=== PATIENT | female | born 1970 | race Caucasian/White ===

== ENCOUNTER 2017-11-06 15:50 | Emergency (ER) | payer OTHER ==
[~2017-11-06 15:50] MED LIST: PRED-1 PO; ROBITUSSIN; VALS1TAB96 PO
[2017-11-06 15:57] VITALS: BP 140/94
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
== END 2017-11-06 16:14 | disposition home or self-care (01) ==
LOC: ER 15:55
DX: S83.91XA Sprain of unspecified site of right knee, initial encounter (principal); Y93.55 Activity, bike riding; V18.0XXA Pedal cycle driver injured in noncollision transport accident in nontraffic accident, initial encounter
CPT/HCPCS: 99283; L1830

== ENCOUNTER 2018-05-11 19:10 | Emergency (ER) | payer OTHER ==
[2018-05-11 19:17] VITALS: BP 153/103
[2018-05-11] MEDS ORDERED: HYDROCHLOROTHIAZIDE 25 MG TAB PO ONE (19:55)
--- NOTE | 2018-05-11 19:55 | ER Report ---
History and Physical Time Seen By MD: 19:50 Hx. of Stated Complaint: PT HERE FOR HIGH BP. SHE REPORTS LAST TAKING LOSARTAN 5 DAYS AGO DUE TO BEING OUT OF IT. HPI/ROS CHIEF COMPLAINT: Elevated blood pressure HISTORY OF PRESENT ILLNESS: Patient ran out of her Olmesartan 5 days ago and has since been concerned about elevated blood pressure. She has been checking her blood pressure daily and noticed that it has been elevating significantly. However, she has not had concurrent symptoms. Today at home her blood pressure was noted to be 200/120, however she does note that the cuff may not be sized right in here notes that her blood pressure was in the 150s. She denies headache, chest pain, shortness of breath, edema, change in urination, or any other concerning symptoms. She does note that she has a mild frontal sinus headache but does not feel like this has been affected at all by change in blood pressure. Patient has a plan to call her primary doctor tomorrow but is not sure when she can get in is very concerned about her elevated blood pressure. Her aolmesartan has been recalled so she is looking for guidance as to what to do at this point. REVIEW OF SYSTEMS: Constitutional: No fever, no chills. Eyes: no blurred vision, diplopia ENT: No sore throat. Cardiovascular: No chest pain, no palpitations. Respiratory: No cough, no shortness of breath. Gastrointestinal: No abdominal pain, no vomiting. Genitourinary: no change in urination Musculoskeletal: No back pain. Skin: No rashes. Neurological: mild frontal rodriguez as above Remainder of the 14 system rev: Yes Allergies: Coded Allergies: Penicillins (Verified Allergy, Mild, HIVES, 05/11/18) cephalexin (Verified Allergy, Mild, RASH, 05/11/18) erythromycin base (Verified Allergy, Mild, RASH, 05/11/18) Home Meds Active Scripts Hydrochlorothiazide (HYDROCHLOROTHIAZIDE) 25 Mg Tablet, 0.5 TAB PO QDAY for 14 Days, #14 TAB Prov:SEBASTIAN SPANN MD 05/11/18 Reported Medications Valsartan/Hydrochlorothiazide (Diovan Hct 160-12.5 Mg Tab) 1 Tab Tablet, 1 TAB PO QDAY, 0 Refills 09/29/10 Hx Smoking: No Hx Substance Use Disorder: No Constitutional Vital Sign - Last 24 Hours 05/11/18 19:17 Temp 98.5 Pulse 99 Resp 14 B/P (MAP) 153/103 Pulse Ox 96 O2 Delivery Room Air Physical Exam General Appearance: The patient is alert, has no immediate need for airway protection and no signs of toxicity. Eyes: Pupils equal and round no pallor or injection. ENT, Mouth: Mucous membranes are moist. Respiratory: There are no retractions, lungs are clear to auscultation. Cardiovascular: Regular rate and rhythm. no m/r/g Gastrointestinal: Abdomen is soft and non tender, no masses, bowel sounds normal. Neurological: alert, oriented Skin: Warm and dry, no rashes. Musculoskeletal: Extremities are nontender, nonswollen and have full range of motion. DIFFERENTIAL DIAGNOSIS: After history and physical exam differential diagnosis was considered for uncontrolled hypertension/hypertensive emergency with end organ damage, acs, chf, pulm edema, aide, or other result of elevated bp. Medical Decision Making ED Course/Re-evaluation ED Course Patient presents with hypertension recently uncontrolled because her medication has been recalled but without evidence of end organ damage. After thorough history and physical, patient does not have evidence of hypertensive emergency. I given her initial dose of HCTZ and short prescription dear to follow-up and developed plan with primary doctor. She understands strict return precautions. Decision to Disposition Date: May 11, 2018 Decision to Disposition Time: 20:05 Depart Departure Latest Vital Signs Vital Signs Date Time Temp Pulse Resp B/P (MAP) Pulse Ox O2 Delivery O2 Flow Rate FiO2 05/11/18 19:17 98.5 99 14 153/103 96 Room Air Impression: Primary Impression: Uncontrolled hypertension Condition: Improved Disposition: HOME OR SELF-CARE Referrals: JOSE DANIEL YEN (PCP) 2 Days New Scripts Hydrochlorothiazide (HYDROCHLOROTHIAZIDE) 25 Mg Tablet 0.5 TAB PO QDAY for 14 Days, #14 TAB Prov: SEBASTIAN SPANN MD 05/11/18 Patient Instructions: Hypertension (ED) Additional Instructions: You will call your primary doctor to further discuss your blood pressure regimen tomorrow. Please return for concerning chest pain, trouble breathing, swelling in legs, change in urination, concerning headaches or any other concerns. SEBASTIAN SPANN MD May 11, 2018 19:55
[2018-05-11] MEDS ORDERED: HYDR-2966 PO (19:57)
== END 2018-05-11 20:11 | disposition home or self-care (01) ==
LOC: ER 19:49
DX: I10 Essential (primary) hypertension (principal)
CPT/HCPCS: 99283